=== PATIENT | male | born 1955 | race African-American/Black ===

== ENCOUNTER 2021-05-03 00:49 | Emergency (ER) | payer OTHER ==
[~2021-05-03] VITALS: Ht 177.8 cm; Wt 101.6 kg
--- NOTE | 2021-05-03 00:58 | NUR ---
PATIENT BIB [facility] FROM [facility] FOR C/O LEFT A/V SHUNT BLEEDING AND RIGHT BIG TO INJURY. PT A/O X2-3, NO SOB OR LABORED BREATHING, AFEBRILE. DENIES CP/PRESSURE. NO GI/ DISTRESS. CLEAR SPEECH, COMPLETE SENTENCES. ABLE TO MOVE ALL EXTREMIITIES.
--- NOTE | 2021-05-03 01:15 | NUR ---
DR. RIOS AT BEDSIDE, MSE IN PROGRESS.
[2021-05-03] MEDS ORDERED: PIPERACILLIN SODIUM/TAZOBACTAM 3.375 G in IV DEXTROSE 5% 50 ML IV ONE (01:30)
[2021-05-03] MEDS ORDERED: VANCOMYCIN 1G/D5W 200 ML PIGGYBACK IV ONE (01:30)
[2021-05-03 01:41] LABS: HEMATOCRIT 33.1 % (36.7-47.1); MEAN CORPUSCULAR HEMOGLOBIN 29.5 uug (23.8-33.4); MEAN CORPUSCULAR VOLUME 91.5 fL (73.0-96.2); PLATELET COUNT (AUTO) 202 K/uL (152-348)
[2021-05-03 01:44] LABS: CREATININE 3.6 mg/dL (0.6-1.3); POTASSIUM 4.5 mmol/L (3.5-5.1)
[2021-05-03] MEDS ORDERED: VANCOMYCIN IV 200 ML ONE (01:52)
[2021-05-03] MEDS ORDERED: PIPERACILLIN/TAZOBACTAM/D5W 50 ML IV ONE (01:52)
[2021-05-03 01:57] LABS: BILIRUBIN,DIRECT 0.1 mg/dL (0.0-0.2); BILIRUBIN,TOTAL 0.5 mg/dL (0.2-1.0); TOTAL PROTEIN, SERUM 7.6 g/dL (6.4-8.2)
--- NOTE | 2021-05-03 02:00 | NUR ---
PT NOTED TO BE IN BED, RESTING COMFORTABLY.
--- NOTE | 2021-05-03 02:50 | NUR ---
Nikki aiken in [facility] - 05/03/21 at 0410 by JIMENA PT AMBULATED TO RESTROOM, STEADY GAIT.
--- NOTE | 2021-05-03 04:06 | NUR ---
Nikki aiken in [facility] - 05/03/21 at 0410 by JIMENA PT NOTED TO BE AWAKE, RESTING COMFORTABLY AND WATCHING TV.
--- NOTE | 2021-05-03 04:10 | NUR ---
[facility].
--- NOTE | 2021-05-03 04:11 | NUR ---
PT IN BED, LISTENING TO TV. DENIES ANY PAIN/DISCOMFORT.
[2021-05-03] MEDS ORDERED: TDAP DIPH,PERTUSS,TET VAC/PF 0.5 ML DISP.SYRIN IM ONE ×2 (04:30→04:48)
--- NOTE | 2021-05-03 04:54 | NUR ---
CALLED [facility] AGAIN, DR. RIOS WANTS TO TRANSFER PT.
[2021-05-03] MEDS ORDERED: IV NORMAL SALINE 500 ML IV ONE (05:15)
--- NOTE | 2021-05-03 06:04 | NUR ---
Spoke to [facility], latest VS provided. Patient to be transferred to [facility] ED, phone # , receiving Dr. wallace. 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 [facility] phone number .
--- NOTE | 2021-05-03 06:39 | NUR ---
GAVE REPORT TO MIGUEL TREVINO
--- NOTE | 2021-05-03 07:20 | NUR ---
[facility] AT BEDSIDE.
--- NOTE | 2021-05-03 07:25 | NUR ---
Patient Tranfers to outside Facility Physician: ADELINA Location: [facility]
== END 2021-05-03 07:26 | disposition short-term general hospital (02) ==
LOC: ER 00:57
DX: S91.201A Unspecified open wound of right great toe with damage to nail, initial encounter (principal); X58.XXXA Exposure to other specified factors, initial encounter; Y92.099 Unspecified place in other non-institutional residence as the place of occurrence of the external cause; E11.42 Type 2 diabetes mellitus with diabetic polyneuropathy; E11.22 Type 2 diabetes mellitus with diabetic chronic kidney disease; N18.6 End stage renal disease; Z99.2 Dependence on renal dialysis; R70.0 Elevated erythrocyte sedimentation rate; H54.7 Unspecified visual loss; Z20.822 Contact with and (suspected) exposure to COVID-19; D64.9 Anemia, unspecified; R79.89 Other specified abnormal findings of blood chemistry; E11.65 Type 2 diabetes mellitus with hyperglycemia; M85.871 Other specified disorders of bone density and structure, right ankle and foot
CPT/HCPCS: 36415; 73630; 80048; 80076; 83605; 83880; 84484; 85025; 85651; 86850; 86900; 86901; 87040 ×2; 87426; 90471; 90715; 96361; 96365; 96375; 99285; J2543; J3370; 70030-TC; A4663; J7040

== ENCOUNTER 2021-05-04 20:50 | Emergency (ER) | payer OTHER ==
[~2021-05-04] VITALS: Ht 177.8 cm; Wt 101.6 kg
[2021-05-04] MEDS ORDERED: SILVER NITRATE APPLICATOR STICK EACH TP ONE ×2 (21:30)
--- NOTE | 2021-05-04 21:57 | NUR ---
Called [facility] as requested by Dr Cortez for possible transfer to [place]. Calvin SALINAS will call back to speak with Dr Cortez.
[2021-05-04 22:45] LABS: HEMATOCRIT 25.6 % (36.7-47.1); MEAN CORPUSCULAR HEMOGLOBIN 29.7 uug (23.8-33.4); PLATELET COUNT (AUTO) 177 K/uL (152-348)
--- NOTE | 2021-05-04 22:45 | NUR ---
[facility] to [facility] in [facility] ER, call for report is . Accepting MD is Dr Oreilly. ETA pick by [facility] is [id number].
[2021-05-04 23:01] LABS: ALANINE AMINOTRANSFERASE 34 U/L (16-63); ALKALINE PHOSPHATASE 94 U/L (50-136); ASPARTATE AMINOTRANSFERASE 42 U/L (15-37); BILIRUBIN,DIRECT < 0.1 mg/dL (0.0-0.2); BILIRUBIN,TOTAL 0.5 mg/dL (0.2-1.0); CARBON DIOXIDE 31 mmol/L (21-32); CHLORIDE 101 mmol/L (98-107); CREATININE 2.8 mg/dL (0.6-1.3); GLUCOSE 234 mg/dL (74-106); POTASSIUM 3.8 mmol/L (3.5-5.1); UREA NITROGEN, BLOOD 11 mg/dL (7-18)
--- NOTE | 2021-05-04 23:04 | NUR ---
Gave report to Darin from [facility]
--- NOTE | 2021-05-04 23:10 | NUR ---
[facility] ambulance at bedside to transfer pt to [facility]
--- NOTE | 2021-05-04 23:19 | NUR ---
Pt transfered out of ER in stable condition by [id number]
== END 2021-05-04 23:20 | disposition short-term general hospital (02) ==
LOC: ER 20:53
DX: L76.22 Postprocedural hemorrhage of skin and subcutaneous tissue following other procedure (principal); E11.42 Type 2 diabetes mellitus with diabetic polyneuropathy; S91.202D Unspecified open wound of left great toe with damage to nail, subsequent encounter; X58.XXXD Exposure to other specified factors, subsequent encounter; H54.7 Unspecified visual loss; E78.5 Hyperlipidemia, unspecified; I10 Essential (primary) hypertension; E11.22 Type 2 diabetes mellitus with diabetic chronic kidney disease; I12.0 Hypertensive chronic kidney disease with stage 5 chronic kidney disease or end stage renal disease; N18.6 End stage renal disease; Z99.2 Dependence on renal dialysis; D64.9 Anemia, unspecified; Z20.822 Contact with and (suspected) exposure to COVID-19; Z79.82 Long term (current) use of aspirin
CPT/HCPCS: 36415; 85025; A4663

== ENCOUNTER 2021-08-27 23:48 | Emergency (ER) | payer OTHER ==
[~2021-08-27] VITALS: Ht 182.9 cm; Wt 99.8 kg
[2021-08-28] MEDS ORDERED: IV NORMAL SALINE 1000 ML BAG IV ONE
--- NOTE | 2021-08-28 | NUR ---
Patient B[facility] via [facility] for c/o lower abdominal pain and constipation x1 week or longer. Patient A/Ox4. Speech is clear, speaks in complete sentences, no evidence of any acute neuro deficits. Respiratory even and unlabored, even though patient c/o sob due to discomfort of the pressure in abdomen. Denies any cp, palpitations, or dizziness. Patient has hypoactive bowel sounds x4 quads, denies any n/v throughout this time. Denies any distress, as he currently is on hemodialysis and per patient report, he states he has [id number] urine production. Patient skin intact, hemodialysis shunt on [place]. Patient currently dealing with right foot wound, but with no evidence of any open sores. Patient in bed at lowest position, sr upx2, call light within reach. Fall and safety precautions implemented per protocol.
[2021-08-28 00:41] LABS: HEMATOCRIT 38.5 % (36.7-47.1); MEAN CORPUSCULAR HEMOGLOBIN 28.3 uug (23.8-33.4); MEAN CORPUSCULAR VOLUME 86.9 fL (73.0-96.2); PLATELET COUNT (AUTO) 193 K/uL (152-348)
[2021-08-28 00:44] LABS: CREATININE 3.9 mg/dL (0.6-1.3)
[2021-08-28 00:49] LABS: BILIRUBIN,DIRECT 0.1 mg/dL (0.0-0.2); BILIRUBIN,TOTAL 0.4 mg/dL (0.2-1.0); TOTAL PROTEIN, SERUM 8.3 g/dL (6.4-8.2)
[2021-08-28] MEDS ORDERED: IV NORMAL SALINE 250 ML IV ONE (01:10)
[2021-08-28] MEDS ORDERED: IOHEXOL 300MG/ML 100 ML INFUS..BTL ONE (01:10)
[2021-08-28] MEDS ORDERED: SWABABLE VALVE TRANSFER SET EA MC ONE (01:10)
[2021-08-28] MEDS ORDERED: LACT10SO3 PO (02:29)
[2021-08-28] MEDS ORDERED: BISA10SU61 RC (02:29)
[2021-08-28] MEDS ORDERED: BISA-79 PO (02:29)
[2021-08-28] MEDS ORDERED: BISACODYL 5 MG TABLET.DR PO ONE ×2 (02:30→03:13)
--- NOTE | 2021-08-28 02:49 | NUR ---
[facility] contacted, awaiting call back for MD to MD phone call and possible transport back to facility.
--- NOTE | 2021-08-28 03:02 | NUR ---
[facility] has received report from ER[facility] Padron, and is authorizing transport for patient to return to facility. According to [facility], [facility] will arrange and coordinate transport.
--- NOTE | 2021-08-28 04:09 | NUR ---
[facility] transport here to transport patient back to facility. Attempted to call the point of contact phone number for facility multiple times with no answer. Patient discharged to home in stable condition. Written and verbal after care instructions given. Patient verbalizes understanding of instructions. Stressed follow up or return to ER for worsening s/s.
[2021-08-28 04:10] VITALS: BP 131/79
== END 2021-08-28 04:12 ==
LOC: ER 23:56
DX: K59.00 Constipation, unspecified (principal); R94.31 Abnormal electrocardiogram [ECG] [EKG]; I87.2 Venous insufficiency (chronic) (peripheral); E11.22 Type 2 diabetes mellitus with diabetic chronic kidney disease; I12.0 Hypertensive chronic kidney disease with stage 5 chronic kidney disease or end stage renal disease; N18.6 End stage renal disease; Z99.2 Dependence on renal dialysis; H54.7 Unspecified visual loss; E78.5 Hyperlipidemia, unspecified
CPT/HCPCS: 71045; 74177; 80048; 80076; 82009; 82962; 83605; 83690; 85025; 93005; 96360; 96361; 99285; Q9967; J7030; J7050